=== PATIENT | male | born 1965 | race Caucasian/White ===

== ENCOUNTER 2018-06-26 19:10 | Emergency (ER) | payer BC, OTHER ==
[~2018-06-26] VITALS: Ht 190.5 cm; Wt 124.7 kg
--- OUTSIDE RECORDS SUMMARY | 2018-06-26 19:14 | XMS REPORT ---
Author Author ANGIE CALHOUN Organization [facility] Address [address] [place] [address] Care Team Providers Care Rn Traveling Name Role Phone LJ ANGIE Unavailable PROBLEMS Type Condition ICD9-CM Code VTO71-SE Code Onset Dates Condition Status SNOMED Code Problem Acute gout of right ankle, unspecified cause M10.9 Active [id number] ALLERGIES No Known Allergies ENCOUNTERS Encounter Location Date Diagnosis [facility] [id number] [place] [phone] May, Acute gout of right ankle, unspecified cause M10.9 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 Denies injury, states it might be gout flare up. KBoleRN PLAN OF CARE VITAL SIGNS Height 75 in 2017-03-21 Weight 285.6 lbs 2017-03-21 Temperature 97.5 degrees Fahrenheit 2017-03-21 Heart Rate 72 bpm 2017-03-21 Respiratory Rate 20 2017-03-21 BMI 35.69 kg/m2 2017-03-21 Blood pressure systolic 128 mmHg 2017-03-21 Blood pressure diastolic 92 mmHg 2017-03-21 MEDICATIONS Medication Instructions Dosage Frequency Start Date End Date Duration Status Colchicine 0.6 MG Orally Once a day Take 2 capsules now, then take one capsule in one hour 24h Feb, Active PredniSONE 20 mg Orally Once a day 2 tablets 24h Feb, Mar, 05 days Active RESULTS No Results PROCEDURES No Known procedures INSTRUCTIONS MEDICATIONS ADMINISTERED No Known Medications MEDICAL (GENERAL) HISTORY Type Description Date Medical History hypercholesterolemia Surgical History orthopedic surgery-left ankle
--- OUTSIDE RECORDS SUMMARY | 2018-06-26 19:14 | XMS REPORT ---
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 Name Role Phone LJ ANGIE Unavailable PROBLEMS Type Condition ICD9-CM Code [id number] Code Onset Dates Condition Status SNOMED Code Problem Acute idiopathic gout of left hand M10.042 Active [id number] Problem Acute gout of right ankle, unspecified cause M10.9 Active [id number] ALLERGIES No Known Allergies ENCOUNTERS Encounter Location Date Diagnosis [facility] [address] [place], [place] [id number] [place] [phone] January, Acute idiopathic gout of left hand M10.042 [facility] [address] [phone] May, Acute gout of right ankle, unspecified cause M10.9 [facility] [address] [phone] Feb, 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 Possible gout flare up started last night while laying down and straightening arm - Syed Santos MA PLAN OF CARE VITAL SIGNS Height 75 in 2018-02-02 Weight 293.6 lbs 2018-02-02 Temperature 97.9 degrees Fahrenheit 2018-02-02 Heart Rate 62 bpm 2018-02-02 Respiratory Rate 16 2018-02-02 BMI 36.69 kg/m2 2018-02-02 Blood pressure systolic 118 mmHg 2018-02-02 Blood pressure diastolic 78 mmHg 2018-02-02 MEDICATIONS Medication Instructions Dosage Frequency Start Date End Date Duration Status Colchicine 0.6 MG Orally Once a day 1 capsule 24h Feb, Active PredniSONE 20 mg Orally Once a day 2 tablets 24h January, January, 05 days Active RESULTS No Results PROCEDURES No Known procedures INSTRUCTIONS MEDICATIONS ADMINISTERED No Known Medications MEDICAL (GENERAL) HISTORY Type Description Date Medical History hypercholesterolemia Surgical History orthopedic surgery-left ankle
--- OUTSIDE RECORDS SUMMARY | 2018-06-26 19:14 | XMS REPORT | Continuity of Care Document ---
Author Author [facility] Address Unknown Phone Unavailable Allergies There is no data. Medications There is no data. Problems Date Dx Coded Attending Type Code Diagnosis Diagnosed By 12/26/2014 CARINA PURI DO 274.9 GOUT UNSPECIFIED Procedures There is no data. Results Test Result Range Uric Acid, Serum - 06/10/17 08:38 Uric Acid, Serum 8.4 mg/dL 3.7-8.6 URIC ACID, SERUM - 06/10/17 08:38 Uric Acid, Serum 8.4 mg/dL 3.7-8.6 Encounters ACCT No. Visit Date/Time Discharge Status Pt. Type Provider Facility Loc./Unit Complaint [id number] 12/26/2014 14:13:00 12/26/2014 23:59:59 [facility] Outpatient CARINA PURI DO [id number] 06/11/2017 09:09:00 Document Registration [id number] 02/02/2018 14:40:00 02/02/2018 23:59:59 [facility] Outpatient CARINA PURI DO [facility] [id number] 06/10/2017 08:10:00 Document Registration
--- NOTE | 2018-06-26 20:12 | ED Upper Extremity ---
General Chief Complaint: Upper Extremity Stated Complaint: L WRIST PAIN Nursing Triage Note: PT PRESENTS TO ER WITH COMPLAINT OF LEFT WRIST PAIN. STATES IT STARTED TUESDAY. HAS APPOINTMENT IN AT [place] ON TUESDAY TO RECIEVE A STEROID SHOT. Nursing Sepsis Screen: No Definite Risk Source: patient Exam Limitations: no limitations History of Present Illness Date Seen by Provider: Jun 26, 2018 Time Seen by Provider: 20:10 Initial Comments to ER with reports of left lateral wrist pain. He states that this flared up a few days ago after playing golf. 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 He would like a shot of steroids in the wrist. Onset: just prior to arrival Severity: moderate Pain/Injury Location: left wrist Method of Injury: unknown Modifying Factors: Worse With Movement Allergies and Home Medications Allergies Coded Allergies: No Known Drug Allergies (Unverified , 06/26/18) Patient Home Medication List Home Medication List Reviewed: Yes Review of Systems Constitutional: see HPI EENTM: see HPI Respiratory: no symptoms reported Cardiovascular: no symptoms reported Genitourinary: no symptoms reported Musculoskeletal: see HPI Skin: no symptoms reported Psychiatric/Neurological: No Symptoms Reported Past Pslypmk-Scjfhs-Rfpcrd Hx Patient Social History Alcohol Use: Occasionally Uses Recreational Drug Use: No Smoking Status: Never a Smoker Recent Foreign Travel: No Contact w/Someone Who Travel: No Recent Infectious Disease Expo: No Recent Hopitalizations: No Immunizations Up To Date Tetanus Booster (TDap): Unknown Seasonal Allergies Seasonal Allergies: No Past Medical History Surgeries: Yes Orthopedic Respiratory: No Cardiac: No Neurological: No Genitourinary: No Gastrointestinal: No Musculoskeletal: Yes Arthritis Endocrine: No HEENT: No Cancer: No Psychosocial: No Physical Exam Vital Signs Vital Signs - First Documented 06/26/18 20:00 Temp 98.1 Pulse 82 Resp 18 B/P (MAP) 133/94 (107) O2 Delivery Room Air Capillary Refill : Less Than 3 Seconds Height, Weight, BMI Height: 6'3.00" Weight: 275lbs. oz. 124.864340fe; BMI Method:Stated General Appearance: WD/WN, no apparent distress HEENT: PERRL/EOMI Neck: full range of motion, normal inspection Respiratory: no respiratory distress, no accessory muscle use Elbow/Forearm: normal inspection, non-tender Wrist: Yes normal inspection, Yes non-tender Hand: Left, soft tissue tenderness (no swelling erythema or ecchymosis. No deformity. Tenderness is over the ulnar styloid and just distal to this.) Neurologic/Psychiatric: alert, normal mood/affect, oriented x 3 Skin: normal color, warm/dry Progress/Results/Core Measures Results/Orders My Orders Orders - FRANCISCO BURGOS APRN Dexamethasone Pf Injection (Decadron Pf (06/26/18 20:15) Vital Signs/I&O 06/26/18 20:00 Temp 98.1 Pulse 82 Resp 18 B/P (MAP) 133/94 (107) O2 Delivery Room Air Blood Pressure Mean: 107 Departure Impression Primary Impression: Arthralgia of left wrist Disposition: HOME, SELF-CARE Condition: Stable Departure-Patient Inst. Decision time for Depature: 20:12 Referrals: NO,LOCAL PHYSICIAN (PCP/Family) Primary Care Physician Patient Instructions: ARTHRALGIA Add. Discharge Instructions: 1. Follow-up with your orthopedist or whoever usually injects the wrist. All discharge instructions reviewed with patient and/or family. Voiced understanding. FRANCISCO BURGOS APRN Jun 26, 2018 20:12
[2018-06-26] MEDS ORDERED: DEXAMETHASONE PF 10 MG/ML (DECADRON) VIAL IM ONE (20:15)
[2018-06-26 20:35] VITALS: BP 133/94
== END 2018-06-26 20:35 | disposition home or self-care (01) ==
LOC: EDUNIT# 19:10 → ER 19:11
DX: M25.532 Pain in left wrist (principal)
CPT/HCPCS: 99284

== ENCOUNTER 2019-08-13 11:30 | Emergency (ER) | payer BC ==
[~2019-08-13] VITALS: Ht 190 cm; Wt 129.5 kg
[2019-08-13] MEDS ORDERED: ONDANSETRON 4 MG/2 ML (SDV) Z0FRAN IVP ONE (11:45)
[2019-08-13] MEDS ORDERED: NS IV 1000 ML 1,000 ML IV ONE (11:45)
[2019-08-13] MEDS ORDERED: KETOROLAC 30 MG/ML VIAL IVP ONE (11:45)
--- NOTE | 2019-08-13 12:02 | ED Back Pain ---
General Chief Complaint: Back Problems Stated Complaint: LOWER L BACK PAIN Source of Information: Patient Exam Limitations: No Limitations History of Present Illness Date Seen by Provider: Aug 13, 2019 Time Seen by Provider: 11:40 Initial Comments This is a 53-year-old male that presents to the emergency room with complaints of sudden onset of left flank pain at 10:00 this morning. Patient reports that he has a tingling sensation when he voids, denies dysuria, urgency, hematuria. Patient states that he [facility] and was told that it could possibly be a kidney stone and to present to the emergency department. Patient states that he has vomited times one since this pain has started. No STI risk factors identified. Patient denies having a history of anything like this before. Location: Other (left flank) Timing/Duration: 1-3 Hours Severity: Mild Pain/Injury Location: Other (left flank) Radiation: Other (denies) Method of Injury: Other (denies) Modifying Factors: Improves With Other (patient denies anything making it better) Associated Symptoms: other (tingling with voiding) Allergies and Home Medications Allergies Coded Allergies: No Known Drug Allergies (Unverified , 06/26/18) Home Medications Hydrocodone Bit/Acetaminophen 1 Tab Tab, 1 EACH PO Q4-6HR PRN for PAIN-MODERATE Prescribed by: ROSE VALADEZ on 08/13/19 1257 Ondansetron 4 Mg Tab.rapdis, 4 MG PO Q6H PRN for NAUSEA/VOMITING Prescribed by: ROSE VALADEZ on 08/13/19 1257 Patient Home Medication List Home Medication List Reviewed: Yes Review of Systems Constitutional: no symptoms reported, see HPI EENTM: see HPI, no symptoms reported Respiratory: no symptoms reported, see HPI Cardiovascular: no symptoms reported, see HPI Gastrointestinal: see HPI, nausea Genitourinary: see HPI, other (tingling) Musculoskeletal: no symptoms reported, see HPI Skin: no symptoms reported, see HPI Psychiatric/Neurological: No Symptoms Reported, See HPI All Other Systems Reviewed Negative Unless Noted: Yes Past Hnekoyg-Jeldwb-Hvugjt Hx Past Med/Social Hx: Reviewed Nursing Past Med/Soc Hx Patient Social History Recent Hopitalizations: No Immunizations Up To Date Tetanus Booster (TDap): Unknown Seasonal Allergies Seasonal Allergies: No Past Medical History Surgeries: Yes Orthopedic Respiratory: No Cardiac: No Neurological: No Genitourinary: No Gastrointestinal: No Musculoskeletal: Yes Arthritis Endocrine: No HEENT: No Cancer: No Psychosocial: No Physical Exam Vital Signs Vital Signs - First Documented 08/13/19 11:35 Temp 36.5 Pulse 82 Resp 20 B/P (MAP) 159/94 (115) Pulse Ox 94 O2 Delivery Room Air Capillary Refill : Height, Weight, BMI Height: 6'3.00" Weight: 275lbs. oz. 124.756290sh; BMI Method:Stated General Appearance: No Apparent Distress, WD/WN HEENT: PERRL/EOMI, TMs Normal, Normal ENT Inspection, Moist Mucous Membranes Neck: Full Range of Motion, Normal Inspection, Non Tender Cardiovascular: Regular Rate, Rhythm, No Edema, No Gallop, No JVD, No Murmur, Normal Peripheral Pulses Respiratory: Chest Non Tender, Lungs Clear, Normal Breath Sounds, No Accessory Muscle Use, No Respiratory Distress Gastrointestinal: Normal Bowel Sounds, Non Tender, Soft Genital/Rectal: Normal Genital Exam Back: Normal Inspection, No CVA Tenderness, No Vertebral Tenderness Extremity: Normal Capillary Refill, Normal Inspection, Normal Range of Motion, Non Tender, No Calf Tenderness Neurologic/Psychiatric: Alert, Oriented x3, No Motor/Sensory Deficits, Normal Mood/Affect, floorhand II-XII Norm as Tested Skin: Normal Color, Warm/Dry Lymphatic: No Adenopathy Progress/Results/Core Measures Results/Orders Lab Results Laboratory Tests Test 08/13/19 13:20 Range/Units Urine Color YELLOW Urine Clarity CLEAR Urine pH 5.0 5-9 Urine Specific [place] 1.025 H 1.016-1.022 Urine Protein NEGATIVE NEGATIVE Urine Glucose (UA) 3+ H NEGATIVE Urine Ketones NEGATIVE NEGATIVE Urine Nitrite NEGATIVE NEGATIVE Urine Bilirubin NEGATIVE NEGATIVE Urine Urobilinogen 0.2 < = 1.0 MG/DL Urine Leukocyte Esterase NEGATIVE NEGATIVE Urine RBC (Auto) TRACE-I NEGATIVE Urine RBC RARE /HPF Urine WBC NONE /HPF Urine Squamous Epithelial Cells RARE /HPF Urine Crystals NONE /LPF Urine Bacteria NEGATIVE /HPF Urine Casts NONE /LPF Urine Mucus NEGATIVE /LPF Urine Culture Indicated NO My Orders Orders - ROSE VALADEZ Ua Culture If Indicated (08/13/19 11:34) Abdomen, Flat & Upright/Decub (08/13/19 11:44) Ns Iv 1000 Ml (Sodium Chloride 0.9%) (08/13/19 11:45) Ketorolac Injection (Toradol Injection) (08/13/19 11:45) Ondansetron Injection (Zofran Injectio (08/13/19 11:45) Medications Given in ED Current Medications Medications Dose Ordered Sig/Balbina Route Start Time Stop Time Status Last Admin Dose Admin Ketorolac Tromethamine 30 mg ONCE ONCE IVP 08/13/19 11:45 08/13/19 11:47 DC 08/13/19 12:00 30 MG Ondansetron HCl 4 mg ONCE ONCE IVP 08/13/19 11:45 08/13/19 11:47 DC 08/13/19 12:00 4 MG Sodium Chloride 1,000 ml @ 0 mls/hr Q0M ONCE IV 08/13/19 11:45 08/13/19 11:47 DC 08/13/19 12:01 1,000 MLS/HR Vital Signs/I&O 08/13/19 08/13/19 11:35 13:26 Temp 36.5 Pulse 82 86 Resp 20 19 B/P (MAP) 159/94 (115) 150/102 Pulse Ox 94 99 O2 Delivery Room Air Room Air Progress Progress Note : Time: 11:40 Progress Note Patient seen and evaluated, will obtain KUB x-ray and Toradol 30 mg IV for pain, 1 L normal saline, and Zofran 4 mg for nausea. 1250 patient reports symptoms have improved. He has been unable to void to give urine. 1300 patient provided urine sample. Discharge instructions and return precautions reviewed with the patient, Strainer given and collection cup for stones, if passed. Diagnostic Imaging Diagonstic Imaging: Xray Plain Films/CT/US/NM/MRI: abdomen Comments NAME: [facility] REC#: [id number] PT STATUS: REG ER : 1965 PHYSICIAN: ROSE VALADEZ ADMIT DATE: 08/13/19/ER Draft POSDate of Exam:08/13/19 ABDOMEN, FLAT & UPRIGHT/DECUB Indication: Low back pain, worsening with urination. Findings: Bowel gas pattern appeared unremarkable. Questionable findings for calculus adjacent to the distal tip of the right 3rd lumbar transverse process, this may be the transverse process tip itself. No other potential stone is found. Lung bases clear. Impression: Indeterminate findings between a 3.5 mm right ureteral stone at the level of the L3 lumbar transverse process, no bowel obstruction. No other potential acute finding. Dictated on workstation # [id number] Dict: 08/13/19 1255 Trans: 08/13/19 1258 CVB [id number] Interpreted by: MICHEAL CASTELLON Electronically signed by: Departure Impression Primary Impression: Flank pain, acute Disposition: HOME, SELF-CARE Condition: Improved Departure-Patient Inst. Decision time for Depature: 12:40 Referrals: NO,LOCAL PHYSICIAN (PCP/Family) Primary Care Physician Patient Instructions: Flank Pain (DC), Kidney Stones (DC) Add. Discharge Instructions: Increase fluids, drink 16 oz of water every 1-2 hours. Take Zofran every 6-8 hours for nausea. Take Ibuprofen 600 mg every 8 hours. Use Hydrocodone only for severe pain. Follow up with your primary care doctor of worsening pain. Return to emergency dept for new, urgent health care concerns. All discharge instructions reviewed with patient and/or family. Voiced understanding. Scripts Hydrocodone Bit/Acetaminophen (Hydrocodone/Acetaminophen 5/325mg Tablet) 1 Tab Tab 1 EACH PO Q4-6HR PRN for PAIN-MODERATE MDD 10, #12 TAB 0 Refills Prov: ROSE VALADEZ 08/13/19 Ondansetron (Ondansetron Odt) 4 Mg Tab.rapdis 4 MG PO Q6H PRN for NAUSEA/VOMITING, #8 TAB 0 Refills Prov: ROSE VALADEZ 08/13/19 ROSE VALADEZ Aug 13, 2019 12:02 POS
[2019-08-13] MEDS ORDERED: ACHD5005 PO (12:57)
[2019-08-13] MEDS ORDERED: ONDA4TAB11 PO (12:57)
--- NOTE | 2019-08-13 12:58 | Diagnostic Imaging Report ---
Indication: Low back pain, worsening with urination. Findings: Bowel gas pattern appeared unremarkable. Questionable findings for calculus adjacent to the distal tip of the right 3rd lumbar transverse process, this may be the transverse process tip itself. No other potential stone is found. Lung bases clear. Impression: Indeterminate findings between a 3.5 mm right ureteral stone at the level of the L3 lumbar transverse process, no bowel obstruction. No other potential acute finding. Dictated by: Dictated on workstation # [id number]
[2019-08-13 13:26] VITALS: BP 150/102
[2019-08-13 13:30] LABS: BILIRUBIN,URINE NEGATIVE (NEGATIVE); CLARITY,URINE CLEAR; COLOR,URINE YELLOW; GLUCOSE, URINE (UA) 3+ (NEGATIVE); KETONES,URINE NEGATIVE (NEGATIVE); LEUKOCYTE ESTERASE ,URINE NEGATIVE (NEGATIVE); NITRITE,URINE NEGATIVE (NEGATIVE); PROTEIN,URINE NEGATIVE (NEGATIVE)
[2019-08-13 13:44] LABS: BACTERIA,URINE NEGATIVE /HPF; RBC,URINE RARE /HPF; SQUAMOUS EPITHELIAL CELL,UR RARE /HPF
== END 2019-08-13 13:26 | disposition home or self-care (01) ==
LOC: EDUNIT# 11:30 → ER 11:31
DX: R10.9 Unspecified abdominal pain (principal)
CPT/HCPCS: 74019; 81000

== ENCOUNTER → 2022-02-12 | Outpatient (CLI) | payer BC, OTHER ==
[~2022-02-12] MED LIST: ACHD5005 PO; ONDA4TAB11 PO
--- NOTE | 2022-02-12 11:09 | Diagnostic Imaging Report ---
EXAMINATION: Magnetic resonance imaging of the right knee without intravenous contrast DATE: February 12, 2022. COMPARISON: None. INDICATION: 56-year-old male, right knee pain and swelling. TECHNIQUE: Multiplanar, multisequence non contrast enhanced MR imaging was accomplished. FINDINGS: MENISCI: There is a vertically oblique oriented tear involving the posterior horn/posterior root attachment of the medial meniscus. There is also a free edge tear of the posterior horn of the medial meniscus. There is a 4 mm medial meniscal extrusion. The lateral meniscus is intact. LIGAMENTS AND TENDONS: The anterior and posterior cruciate ligaments are intact. The medial collateral ligament is intact. The iliotibial band, mid third lateral capsular ligament, fibular collateral ligament, biceps femoris tendon and conjoined tendon are intact. The quadriceps tendon and patella ligament are intact. JOINT: There are broad areas of approximately 50% cartilage loss involving the mid and posterior weightbearing portion of the medial femoral condyle. There is a full-thickness cartilage fissure of the mid weightbearing portion of the medial femoral condyle on coronal PD sequence image 19. The lateral compartment cartilage is intact. There is mild thinning of the cartilage of the medial patellar facet with mild underlying subchondral edema. There is a small knee joint effusion without identified intra-articular body or prominent synovitis. BONE: There is degenerative related marrow edema in the medial tibial plateau and patella as mentioned above. There is edema-like signal in the lateral aspect of the proximal tibial metaphysis subjacent to a cystic lesion with images both intraosseous and extraosseous in location. This cystic lesion is near the proximal tibiofibular joint and may reflect a ganglion cyst measuring 2.2 x 1.3 x 0.7 cm in size. There is edema-like signal in the anterior aspect of the medial tibial plateau which may reflect a bone contusion or stress related marrow changes. There is no identified acute fracture. BURSAE AND SOFT TISSUES: There is approximately tibiofibular ganglion cyst which does have intraosseous extension as mentioned above. There is no Carter's cyst. IMPRESSION: 1. Vertically oriented oblique tear involving the posterior horn/posterior root attachment of the medial meniscus and free edge tearing of the posterior horn of the medial meniscus with 4 mm medial meniscal extrusion. 2. Intact lateral meniscus. 3. Intact anterior and posterior cruciate ligaments. Additional ligaments and tendons are intact. 4. Moderate patellofemoral and mild medial compartment osteoarthritis. Small knee joint effusion. 5. Proximal tibiofibular ganglion cyst which does include intraosseous extension in the lateral aspect of the proximal tibial metaphysis with adjacent reactive marrow edema. Dictated by: Dictated on workstation # [id number]
== END ==
LOC: RAD 09:30
PROVIDERS: ATTEND Nurse Practitioner Adult Health
DX: S83.241A Other tear of medial meniscus, current injury, right knee, initial encounter (principal); M17.11 Unilateral primary osteoarthritis, right knee; M67.461 Ganglion, right knee; X58.XXXA Exposure to other specified factors, initial encounter
CPT/HCPCS: 73721